=== PATIENT | female | born 1960 | race Caucasian/White ===

== ENCOUNTER 2021-08-30 07:12 | Day surgery (SDC) | payer BC ==
[2021-08-30] MEDS ORDERED: Propofol 200 MG/20 ML SDV IV ONE (07:13)
[2021-08-30] MEDS ORDERED: Midazolam 1 MG/ML 2 ML SDV IV ONE (07:13)
[2021-08-30] MEDS ORDERED: Ondansetron 4 MG/2 ML SDV IVPUSH ONE (07:13)
[2021-08-30] MEDS ORDERED: Sodium Chloride 0.9% 10 ML Syringe FLUSH PRN (07:15)
[2021-08-30] MEDS: Lactated Ringers 1,000 ML IV SCH (07:57)
--- NOTE | 2021-08-30 08:41 | PCM.HP.2 ---
H&P History of Present Illness - General Date of Service: 08/30/21 Admit Problem/Dx: Admission Diagnosis/Problem Admission Diagnosis/Problem Colonoscopy Source of Information: Patient, Old Records History Limitations: Reports: No Limitations - History of Present Illness Initial Comments - Free Text/Narative: Here for colon screening, last one 10 yrs ago - Related Data Allergies/Adverse Reactions: Allergies Allergy/AdvReac Type Severity Reaction Status Date / Time latex Allergy Rash Verified 08/30/21 07:51 Home Medications: Home Meds Aspirin [Ecotrin EC] 81 mg PO DAILY 08/29/21 [History] Calcium Carbonate/Vitamin D3 [Calcium 600-Vit D3 800 Tablet] 1 each PO DAILY 08/29/21 [History] Fluticasone Propionate [Flonase] 1 spray NS DAILY 08/29/21 [History] Glucosamine/Chondro Zepeda A [Glucosamine-Chondroitin Tab] 1 each PO DAILY 08/29/21 [History] Losartan [Cozaar] 50 mg PO BEDTIME 08/29/21 [History] Magnesium Oxide 400 mg PO DAILY 08/29/21 [History] Multivitamin with Minerals [Multiple Vitamin] 1 tab PO DAILY 08/29/21 [History] [place]-3 Fatty Acids/Fish Oil [Fish Oil 1,200 mg Softgel] 1 each PO DAILY 08/29/21 [History] Vitamin B Complex with C [Super B Complex With C] 1 cap PO DAILY 08/29/21 [History] metroNIDAZOLE [Metronidazole] 1 applic TP BID 08/29/21 [History] Lutein 20 mg PO DAILY 08/30/21 [History] Potassium Gluconate [Potassium] 99 mg PO DAILY 08/30/21 [History] Past Medical History HEENT History: Reports: Hard of Hearing, Impaired Vision Cardiovascular History: Reports: None Respiratory History: Reports: None Musculoskeletal History: Reports: Arthritis Endocrine/Metabolic History: Reports: Obesity/BMI 30+ Oncologic (Cancer) History: Reports: Other (See Below) Other Oncologic History: ENDOMETRIAL CA - Past Surgical History GI Surgical History: Reports: Colonoscopy Female Surgical History: Reports: Hysterectomy, Salpingo-Oophorectomy Social & Family History - Tobacco Use Tobacco Use Status *Q: Never Tobacco User Used Tobacco, but Quit: No - Caffeine Use Caffeine Use: Reports: Coffee - Recreational Drug Use Recreational Drug Use: No Drug Use in Last 12 Months: No H&P Review of Systems - Review of Systems: Review Of Systems: Comprehensive ROS is negative, except as noted in HPI. Exam - Exam Exam: See Below - Vital Signs Vital Signs: Last Vital Signs Temp 97.3 F 08/30/21 07:35 Pulse 66 08/30/21 07:35 Resp 16 08/30/21 07:35 BP 125/74 08/30/21 07:35 Pulse Ox 97 08/30/21 07:35 Weight: 105.687 kg - Exam General: Alert, Oriented Lungs: Clear to Auscultation, Normal Respiratory Effort Cardiovascular: Regular Rate, Regular Rhythm GI/Abdominal Exam: Soft, Non-Tender Sepsis Event Note - Focused Exam Vital Signs: Vital Signs Temp Pulse Resp BP Pulse Ox 08/30/21 07:35 97.3 F 66 16 125/74 97 Problem List Initiated/Reviewed/Updated: Yes Orders Last 24hrs: Active Orders 24 hr Category Date Time Status Patient Status [ADT] Routine ADT 08/30/21 07:15 Active Patient to Empty Bladder [RC] ASDIRECTED Care 08/30/21 07:15 Active Verify Patient Consent Obtain [RC] ASDIRECTED Care 08/30/21 07:15 Active Nothing Per Oral Diet [DIET] Diet 08/30/21 Breakfast Ordered Lactated Ringers [Ringers, Lactated] 1,000 ml Med 08/30/21 07:15 Active IV ASDIRECTED Sodium Chloride 0.9% [Saline Flush] Med 08/30/21 07:15 Active 10 ml FLUSH ASDIRECTED PRN Peripheral IV Insertion Adult [OM.PC] Routine Oth 08/30/21 07:15 Ordered Resuscitation Status Routine Resus Stat 08/29/21 16:18 Ordered Medication Orders Lactated Ringer's (Ringers, Lactated) 1,000 mls @ 125 mls/hr IV ASDIRECTED BRIAN Last Admin: 08/30/21 07:57 Dose: 125 mls/hr Documented by: GABRIELA Sodium Chloride (Sodium Chloride 0.9% 10 Ml Syringe) 10 ml FLUSH ASDIRECTED PRN PRN Reason: Keep Vein Open Assessment/Plan Comment:: Colon Screening; ok to proceed, risks and complicatons reviewed, consent obtained
--- NOTE | 2021-08-30 09:07 | PCM.OPNOTE ---
- General Post-Op/Procedure Note Date of Surgery/Procedure: 08/30/21 Operative Procedure(s): Colonoscopy Findings: Normal Pre Op Diagnosis: Screening Post-Op Diagnosis: Same Anesthesia Technique: MAC Primary Surgeon: David Rosario Anesthesia Provider: Darcy Maier Condition: Good
--- NOTE | 2021-08-30 15:00 | OR ---
DATE OF OPERATION: 08/30/2021 SURGEON: David Rosario MD PREOPERATIVE DIAGNOSIS: Colon screening. POSTOPERATIVE DIAGNOSIS: Normal colonoscopy. PROCEDURE: Colonoscopy. ANESTHESIA: IV sedation. PROCEDURE IN DETAIL: The patient was brought to the procedure room where she was placed on her left side and IV sedation administered. Digital rectal exam was performed which was normal. The colonoscope was inserted and advanced to the level of the cecum with some difficulty getting through a tortuous colon requiring pressure on the abdomen. I was able to reach the cecum. I could identify the ileocecal valve. Appendiceal orifice was behind a fold and liquid stool was present in the cecum which prevented complete visualization. Otherwise, prep was good and surfaces were well visualized. Upon withdrawing the scope, the ascending, transverse, and descending colon were normal in appearance. The sigmoid colon and rectum were normal. Retroflexion was normal. Air was removed and the scope withdrawn. The patient tolerated the procedure well and returned to recovery in stable condition. Recommend routine colon screening again in 10 years. /[id number] TEDDY/SYBIL
== END 2021-08-30 10:24 | disposition home or self-care (01) ==
LOC: FB.SDS 07:12
PROVIDERS: ATTEND Surgery
DX: Z12.11 Encounter for screening for malignant neoplasm of colon (principal); E66.9 Obesity, unspecified; Z91.040 Latex allergy status; Z79.82 Long term (current) use of aspirin; Z79.899 Other long term (current) drug therapy; Z98.890 Other specified postprocedural states; Z68.37 Body mass index [BMI] 37.0-37.9, adult
CPT/HCPCS: 00812-QZ; J2250; J2405; J2704; J7120